=== PATIENT | female | born 1960 | race Caucasian/White ===

== ENCOUNTER 2019-08-18 05:57 | Day surgery (SDC) | payer OTHER ==
[2019-08-18] MEDS ORDERED: Lactated Ringers 1,000 ML IV SCH (06:00)
[2019-08-18] MEDS ORDERED: DIPRIVAN 200 MG/20 ML IV ONE ×2 (07:52→08:27)
[2019-08-18] MEDS ORDERED: Ketamine HCl 50 MG/ML ONE (07:53)
--- NOTE | 2019-08-18 09:04 | OP ---
SURGERY DATE/TIME: 08/18/2019801 PREOPERATIVE DIAGNOSIS: Screening colonoscopy. POSTOPERATIVE DIAGNOSES: 1) Normal colon. 2) External hemorrhoids. PROCEDURE: Colonoscopy. SURGEON: Boogie Cooper M.D. ANESTHESIA: MAC by Gennaro Arita CRNA. ESTIMATED BLOOD LOSS: None. SPECIMENS: None. DESCRIPTION OF PROCEDURE: After informed written consent was obtained, the patient was taken to the endoscopy suite. She was placed in left lateral decubitus position and underwent monitored anesthesia. A digital rectal exam showed external hemorrhoids but no internal lesions. The scope was inserted into the rectum and sequentially the entire colonic mucosa was traversed. The level of cecum was reached and verified with direct visualization of ileocecal valve. Upon withdrawal careful mucosal inspection revealed some scattered mucous but no polyps or other lesions present. Prior to withdrawal retroflexion was performed and showed no obvious internal lesions. The scope was removed and the patient was transferred to the recovery room in good condition.
[2019-08-18 09:52] VITALS: O2SAT 98
[2019-08-18 10:02] VITALS: BP 132/78; PULSE 86
== END 2019-08-18 09:45 | disposition home or self-care (01) ==
LOC: SDC 05:57
PROVIDERS: ATTEND Family Medicine
DX: Z12.11 Encounter for screening for malignant neoplasm of colon (principal); K64.4 Residual hemorrhoidal skin tags
CPT/HCPCS: J2704